=== PATIENT | female | born 1950 | race Caucasian/White ===

== ENCOUNTER 2024-01-06 12:45 | Outpatient (CLI) | payer MEDICARE, MEDICAID | END 2024-01-06 23:59 | disposition home or self-care (01) | LOC: VAS 12:45 | PROVIDERS: ATTEND Family Medicine | DX: R22.41 Localized swelling, mass and lump, right lower limb (principal) | CPT/HCPCS: 93971 ==

== ENCOUNTER 2024-12-23 11:03 | Outpatient (CLI) | payer MEDICARE, MEDICAID ==
--- NOTE | 2024-12-23 12:26 | RADIOLOGY REPORT ---
CLINICAL HISTORY: RECURRENT STROKES TECHNIQUE: Routine multiplanar imaging of the brain was performed without gadolinium contrast. COMPARISON: None FINDINGS: There is no abnormal restricted diffusion to suggest acute infarction. There is mild brain volume loss. Extensive confluent T2 hyperintense signal abnormality within the white matter both cerebral hemispheres and ponds is most compatible with an advanced burden of nonspecific chronic small vessel schema change. 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 There is no evidence for acute ischemic changes, mass, mass effect, or extra- axial fluid collection. There is no hydrocephalus or midline shift. The cerebral sulci and subarachnoid cisterns are not effaced. The imaged paranasal sinuses are clear. There has been left cataract extraction. The midline structures, including the corpus callosum, are unremarkable. The intracranial flow voids are maintained. IMPRESSION: No acute intracranial abnormality seen. No evidence for acute infarct. Mild brain volume loss. Advanced chronic small vessel schema change. Old left parietal lobe infarct. Left cataract extraction.
== END 2024-12-23 23:59 | disposition home or self-care (01) ==
LOC: MRI02 11:03
PROVIDERS: ATTEND Family Medicine
DX: I67.82 Cerebral ischemia (principal); I61.8 Other nontraumatic intracerebral hemorrhage; I67.89 Other cerebrovascular disease; H26.9 Unspecified cataract
CPT/HCPCS: 70551